=== PATIENT | male | born 1965 | race Caucasian/White ===

== ENCOUNTER → 2018-07-14 16:19 | Outpatient (CLI) | payer SELFPAY ==
[2018-07-14 18:16] LABS: AST(SGOT) 17 U/L (15-37); Alanine Aminotransfer ALT/SGPT 30 U/L (16-61); Albumin, Serum 3.6 g/dL (3.2-5.0); Alkaline Phosphatase 98 U/L (45-117); Anion Gap 10 (5-15); BUN 15 mg/dL (7-18); BUN/Creat Ratio 15.8 RATIO (10-20); Bilirubin, Direct 0.09 mg/dL (0.00-0.30); Calcium,Total 8.4 mg/dL (8.5-10.1); Chloride 104 mmol/L (98-107); Cholesterol 102 mg/dL (200); Creatinine, Serum 0.95 mg/dL (0.70-1.30); EST Glomerular Filtration Rate 88 mL/min (>60); Est Glom Filt Rate - Afr Amer 106 mL/min (>60); Globulin 3.8 g/dL (2.2-4.2); Glucose 278 mg/dL (74-106); High Density Lipoprotein 19 mg/dL; Potassium 3.9 mmol/L (3.5-5.1); Protein, Total 7.4 g/dL (6.4-8.2); Sodium Level 139 mmol/L (136-145); Triglycerides 166 mg/dL; Very Low Density Lipoprotein 33 mg/dL (5-40)
[2018-07-14 18:28] LABS: Microalbumin,Random Urine 32.3 mg/L (NO RANGE EST.); Microalbumin:Creatinine Ratio 15.8 mg/g CRE (<30 mg/g CRE)
--- OUTSIDE RECORDS SUMMARY | 2018-10-16 09:02 | XMS RPT_ITS ---
:1965 Author Organization [facility] Care Team Providers Name Role Phone Mark Maradiaga Attending Unavailable Mark Maradiaga Primary Care Unavailable PROBLEMS PROBLEMS No Problem Records FoundPROCEDURES PROCEDURES No Procedure Records FoundRESULTS RESULTS BASIC METABOLIC Collected: 07/14/2018 Status: F Source: ELIUD PROFILE (BMP) 4:21 PM [facility] REPOSITORY Order Comment: Comments: V TYPE CODE TESTS RESULT OUT OF RANGE REFERENCE UNITS LAB L501.0100 74-106 mg/dL High GLU 278 Result Comment: Glucose result greater than or equal to 200 mg/dL suggests DIABETES MELLITUS per A.D.A. criteria. Please note revised GLUCOSE reference range effective 2017. LAB L501.1000 7-18 mg/dL Normal BUN 15 LAB L501.1100 0.70-1.30 mg/dL Normal CREAT,SERUM 0.95 Result Comment: The validity of the calculated GFR AND GFRAA in patients over 70 years has not been determined. Clinical correlation is essential. LAB L501.1110 >60 mL/min Normal EST GFR 88 Result Comment: Non- GFR Calc LAB L501.1115 >60 mL/min Normal EST GFR - AA 106 Result Comment: GFR Calc LAB L501.1300 10-20 RATIO Normal BUN/CRE 15.8 LAB L501.2200 8.5-10.1 mg/dL Low CA 8.4 LAB L501.5300 136-145 mmol/L NA Normal 139 LAB L501.5600 3.5-5.1 mmol/L K Normal 3.9 Result Comment: Slight Hemolysis, Result may be falsely increased. LAB L501.5900 98-107 mmol/L Normal CL 104 LAB L501.6100 21.0-32.0 mmol/L Normal CO2 25.0 LAB L501.6200 5-15 Normal GAP 10 Performed By: #### L500.2500, L500.3400, L500.4100 #### [facility] [address] [place], [place], [id number] LIVER PROFILE Collected: 07/14/2018 Status: F Source: [place] 4:21 PM [facility] REPOSITORY Order Comment: Comments: V TYPE CODE TESTS RESULT OUT OF RANGE REFERENCE UNITS LAB L501.1500 6.4-8.2 g/dL Normal T PROT 7.4 LAB L501.1800 3.2-5.0 g/dL Normal ALB 3.6 LAB L501.1950 2.2-4.2 g/dL Normal GLOB 3.8 LAB L501.4100 15-37 U/L Normal AST 17 Result Comment: Slight Hemolysis, Result may be falsely increased. LAB L501.4305 45-117 U/L Normal ALK P 98 LAB L501.4405 16-61 U/L Normal ALT 30 LAB L501.4600 0.20-1.00 mg/dL Normal T BILI 0.20 LAB L501.4700 0.00-0.30 mg/dL Normal D BILI 0.09 Performed By: #### L500.2500, L500.3400, L500.4100 #### [facility] [address] [place], [place], [id number] LIPID PROFILE Collected: 07/14/2018 Status: F Source: [place] 4:21 PM [facility] REPOSITORY Order Comment: Comments: V TYPE CODE TESTS RESULT OUT OF RANGE REFERENCE UNITS LAB L501.4900 200 mg/dL Normal CHOL 102 Result Comment: <200 mg/dL Desirable 200-240 mg/dL Borderline >240 mg/dL High Risk LAB L501.5000 mg/dL Normal TRIG 166 Result Comment: The drugs N-Acetylcysteine and Metamizole may falsely depress this assay. Serum Triglycerides Reference Interval Normal <150 mg/dL Borderline high 150 - 199 mg/dL High 200 - 499 mg/dL Very High > or = 500 mg/dL LAB L501.6400 mg/dL Low HDL 19 Result Comment: The drugs N-Acetylcysteine and Metamizole may falsely depress this assay. Reference Range HDL <40 mg/dL Low HDL Cholesterol HDL >or= 60 mg/dL High HDL Cholesterol LAB L501.6500 0-130 mg/dL Normal LDL 50 LAB L501.6600 5-40 mg/dL Normal VLDL 33 Performed By: #### L500.2500, L500.3400, L500.4100 #### [facility] [address] [place], [address] MICROALB:CREAT Collected: 07/14/2018 Status: F Source: [facility] 4:21 PM [facility] REPOSITORY TYPE CODE TESTS RESULT OUT OF RANGE REFERENCE UNITS LAB L501.1200 NO RANGE EST. mg/dL Normal UR CREAT 204.00 LAB L502.0500 NO RANGE EST. mg/L Normal 32.3 MICROALBUMIN ,UR LAB L502.0600 <30 mg/g CRE mg/g CRE Normal 15.8 MALB:CREAT Performed By: #### L502.0250 #### [facility] [address] [facility] [place], [address] PROGRESS Observed: 01/07/2018 Status: COMPLETED Source: [place] 10:07 AM [facility] REPOSITORY HNO ID: [id number] Author: Jens Tripp Service: (none) Author Type: Fringe Knotter Type: Progress Notes Filed: 01/07/2018 10:13 AM Note Text: Spoke with the patient and he has changed physician's to Dr. Maradiaga. Jens Tripp MA PROGRESS Observed: 01/01/2018 Status: COMPLETED Source: [place] 10:59 AM [facility] REPOSITORY HNO ID: [id number] Author: Jens Tripp Service: (none) Author Type: Fringe Knotter Type: Progress Notes Filed: 01/07/2018 10:13 AM Note Text: Saiguot Message sent to the patient. Jens Tripp MA PROGRESS Observed: 01/01/2018 Status: COMPLETED Source: [place] 10:57 AM [facility] REPOSITORY HNO ID: [id number] Author: Jens Tripp Service: (none) Author Type: Fringe Knotter Type: Progress Notes Filed: 01/07/2018 10:13 AM Note Text: I have attempted to contact this patient by phone to return their call, schedule an appointment, discuss lab results, etc. Left message to call back. PROGRESS Observed: 12/18/2017 Status: COMPLETED Source: [place] 1:01 PM [facility] REPOSITORY HNO ID: [id number] Author: Jens Tripp Service: (none) Author Type: Fringe Knotter Type: Progress Notes Filed: 01/07/2018 10:13 AM Note Text: PHMA TEAMLET DOCUMENTATION Provider Action/FYI: Patient needs appointment, needs labs ordered, needs Foot and Eye exam. PSR Action/FYI: Teamlet has identified patient by name and date of . Team Dr. Matthews and Jens Tripp ? Last Office Visit:Visit date not found ? Next Office Visit: Visit date not found ? Last BP/Labs: Blood Pressure: Last 3 Encounter BP Readings: Date: BP: 12/20/2015 128/70 10/13/2015 128/90 05/16/2015 136/84 Lipids: Cholesterol, Total (mg/dL) Date Value 10/12/2015 149 06/18/2013 125 HDL Cholesterol (mg/dL) Date Value 10/12/2015 24 06/18/2013 34 LDL Cholesterol (mg/dL) Date Value 10/12/2015 93 06/18/2013 75 Triglyceride (mg/dL) Date Value 10/12/2015 162 06/18/2013 82 HGB A1C: Lab Results Component Value Date HBA1C 9.0 10/12/2015 HBA1C 6.2 11/17/2013 HBA1C 6.0 06/18/2013 TSH: No results found for: TSH) Care Gap: DM - Need Urine Albumin / NOT checked in last 12 months Needs dilated eye exam - HM overdue Last HGBA1C is NOT under 9% Plan: ? Confirm PCP / Status ? Type of appointment needed: Follow-up ? Consultation Appointments: No patient outreach needed at this time ? Labs, HM and Immunization: Jens Tripp MA PROGRESS Observed: 12/17/2017 Status: COMPLETED Source: [place] 10:58 AM [facility] REPOSITORY HNO ID: [id number] Author: Jens Tripp Service: (none) Author Type: Fringe Knotter Type: Progress Notes Filed: 01/07/2018 10:13 AM Note Text: I have attempted to contact this patient by phone to return their call, schedule an appointment, discuss lab results, etc. Left message to call back. DINORA Observed: 12/17/2017 Status: COMPLETED Source: [place] 12:00 AM [facility] REPOSITORY Patient Outreach (FAMPWS) OZ CHAIDEZ ([id number]) 1965 M Date Time Provider Department 12/17/17 JENS TRIPP) EDUARD During your visit today, we recorded the following information about you: Jens Tripp MA 01/07/2018 10:13 AM Signed I have attempted to contact this patient by phone to return their call, schedule an appointment, discuss lab results, etc. Left message to call back. Jens Tripp MA 01/07/2018 10:13 AM Signed PHMA TEAMLET DOCUMENTATION Provider Action/FYI: Patient needs appointment, needs labs ordered, needs Foot and Eye exam. PSR Action/FYI: Teamlet has identified patient by name and date of . Team Dr. Matthews and Jens Tripp ? Last Office Visit:Visit date not found ? Next Office Visit: Visit date not found ? Last BP/Labs: Blood Pressure: Last 3 Encounter BP Readings: Date: BP: 12/20/2015 128/70 10/13/2015 128/90 05/16/2015 136/84 Lipids: Cholesterol, Total (mg/dL) Date Value 10/12/2015 149 06/18/2013 125 HDL Cholesterol (mg/dL) Date Value 10/12/2015 24 06/18/2013 34 LDL Cholesterol (mg/dL) Date Value 10/12/2015 93 06/18/2013 75 Triglyceride (mg/dL) Date Value 10/12/2015 162 06/18/2013 82 HGB A1C: Lab Results Component Value Date HBA1C 9.0 10/12/2015 HBA1C 6.2 11/17/2013 HBA1C 6.0 06/18/2013 TSH: No results found for: TSH) Care Gap: DM - Need Urine Albumin / NOT checked in last 12 months Needs dilated eye exam - HM overdue Last HGBA1C is NOT under 9% Plan: ? Confirm PCP / Status ? Type of appointment needed: Follow-up ? Consultation Appointments: No patient outreach needed at this time ? Labs, HM and Immunization: JAVAN Myers MA 01/07/2018 10:13 AM Signed I have attempted to contact this patient by phone to return their call, schedule an appointment, discuss lab results, etc. Left message to call back. Jens Tripp MA 01/07/2018 10:13 AM Signed Virtual Paper Message sent to the patient. JAVAN Myers MA 01/07/2018 10:13 AM Signed Spoke with the patient and he has changed physician's to Dr. Maradiaga. Jens Tripp MA Allergies As of Date: 12/17/2017 Noted Allergy Reaction BEES 12/13/2006 Date Reviewed: 12/20/2015 Reviewed by: Anupama Vieira Ma - Fully Assessed Reason for Visit: PHMA/Care Gap Outreach [[id number]] Prescriptions as of 12/17/2017 Sig: OMEPRAZOLE 40 MG CAPSULE,ARTURO* TAKE ONE CAPSULE BY MOUTH ONC* LOSARTAN 100 MG TABLET TAKE ONE TABLET BY MOUTH ONCE* OMEGA-3 ACID ETHYL ESTERS 1 G* TAKE TWO CAPSULES BY MOUTH TW* TAMSULOSIN 0.4 MG CAPSULE TAKE ONE CAPSULE BY MOUTH ONC* FINASTERIDE 5 MG TABLET TAKE ONE TABLET BY MOUTH ONCE* OMEGA-3 FATTY ACIDS 1,000 MG * Take 2 capsules by mouth twic* PHENAZOPYRIDINE 200 MG TABLET TAKE ONE TABLET BY MOUTH THRE* EPINEPHRINE 0.3 MG/0.3 ML INJ* Inject 0.3 mL intramuscularly* LINAGLIPTIN 5 MG TABLET Take 1 tablet by mouth once d* METFORMIN 500 MG TABLET Take 1 tablet by mouth twice * GLIMEPIRIDE 2 MG TABLET Take 1 tablet by mouth daily * MELOXICAM 7.5 MG TABLET Take 1 tablet by mouth once d* NICOTINE 21 MG/24 HR DAILY TR* Apply 1 Patch as directed connie* CYCLOBENZAPRINE 10 MG TABLET Take 1 tablet by mouth daily * BLOOD SUGAR DIAGNOSTIC STRIPS Test blood sugar(s) 3 times d* CLOBETASOL 0.05 % TOPICAL CRE* Apply to affected area of act* TRIAMCINOLONE ACETONIDE 0.1 %* Apply to affected area(s) of * BD ASSURE BPM-AUTO ARM CUFF BP check 2x per week. 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 LUMB DISC DIS W MYELOPAT [M51.06] More... Tobacco use disorder [F17.200] Priority: B More... Obesity, unspecified [E66.9] Priority: B More... Allergy to insects and arachnids [Z91.038] Priority: B More... FRACTURE ACETABULUM-CLOSED [S32.409A] INVALID FOR* More... Esophageal reflux [K21.9] Priority: B More... Essential hypertension, benign [I10] Priority: A More... Diabetes mellitus type 2, uncontrolled, without*INVALID FOR* Priority: A Lichenification and lichen simplex chronicus [L*INVALID FOR* Priority: D Pruritus [L29.9] INVALID FOR* Priority: D Xerosis cutis [L85.3] INVALID FOR* Priority: D Neurodermatitis [L28.0] INVALID FOR* Priority: D Eczematous dermatitis [L30.9] INVALID FOR* Priority: D Excoriation [T14.8XXA] INVALID FOR* Priority: D Dysuria [R30.0] INVALID FOR* BPH (benign prostatic hyperplasia) [N40.0] INVALID FOR* Suprapubic pain [R10.2] INVALID FOR* Hematuria [R31.9] INVALID FOR* Prostatitis [N41.9] INVALID FOR* Frequency of urination [R35.0] INVALID FOR* 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] INVALID FOR* Benign non-nodular prostatic hyperplasia with l*INVALID FOR* Encounter Status:Closed by JENS TRIPP on 01/07/18 ALLERGIES ALLERGIES DATE TYPE / CODE NAME / CODE REACTION SEVERITY SOURCE 06/09/2016 Drug venom-honey Anaphylaxis Unknown [facility] Allergy/4160 [id number] [facility] [address]388(SNOMED 698(RXNORM) Repository CT) ENCOUNTERS ENCOUNTERS ADMIT/DISCHARGE ACCOUNT ADMITTING ENCOUNTER LOCATION SOURCE NUMBER CLASS 07/14/2018 [id number] Ambulatory [facility] 3 [facility] ing:MFPLAB Repository PAYERS PAYERS ENCOUNTER GUARANTOR PAYER SUBSCRIBER SOURCE 07/14/2018 Oz Galeas Primary NOT GIVENUNK [place] [id number] Insurance:SELF PAY [facility] [id number]: Number: [facility] Repository Date:2018-07-14 ()
== END ==
LOC: MFPLAB 16:19
PROVIDERS: Family Provider Family Medicine; PCP Family Medicine; Visit Provider Family Medicine
DX: E11.9 Type 2 diabetes mellitus without complications (principal)
CPT/HCPCS: 36415; 80048; 80061; 80076; 82043; 82570

== ENCOUNTER → 2019-06-05 08:35 | Outpatient (CLI) | payer SELFPAY ==
[2019-06-05 11:00] LABS: Anion Gap 7 (5-15); BUN 19 mg/dL (7-18); BUN/Creat Ratio 21.9 RATIO (10-20); Calcium,Total 9.2 mg/dL (8.5-10.1); Chloride 106 mmol/L (98-107); Cholesterol 147 mg/dL (200); Creatinine, Serum 0.87 mg/dL (0.70-1.30); EST Glomerular Filtration Rate 97 mL/min (>60); Est Glom Filt Rate - Afr Amer 117 mL/min (>60); Glucose 144 mg/dL (74-106); High Density Lipoprotein 28 mg/dL; Potassium 4.2 mmol/L (3.5-5.1); Rheumatoid Factor < 10.0 IU/mL (<15); Sodium Level 139 mmol/L (136-145); Triglycerides 75 mg/dL; Very Low Density Lipoprotein 15 mg/dL (5-40)
[2019-06-08 16:57] LABS: ANTINUCLEAR ANTIBODIES DIRECT Negative (Negative)
== END ==
LOC: MFPLAB 08:36
PROVIDERS: Family Provider Family Medicine; PCP Family Medicine; Referring Provider Family Medicine; Visit Provider Family Medicine
DX: E11.9 Type 2 diabetes mellitus without complications (principal); M19.90 Unspecified osteoarthritis, unspecified site
CPT/HCPCS: 36415; 80048; 80061; 86038; 86431

== ENCOUNTER → 2022-03-02 | Outpatient (CLI) | payer SELFPAY ==
[2022-03-02 17:52] LABS: Anion Gap 6 (5-15); BUN 22 mg/dL (7-18); BUN/Creat Ratio 21.2 RATIO (10-20); Calcium,Total 8.7 mg/dL (8.5-10.1); Chloride 104 mmol/L (98-107); Cholesterol 164 mg/dL (200); Creatinine, Serum 1.04 mg/dL (0.70-1.30); EST Glomerular Filtration Rate 78 mL/min (>60); Est Glom Filt Rate - Afr Amer 94 mL/min (>60); Glucose 283 mg/dL (74-106); High Density Lipoprotein 28 mg/dL; Potassium 4.2 mmol/L (3.5-5.1); Sodium Level 134 mmol/L (136-145); Triglycerides 235 mg/dL; Very Low Density Lipoprotein 47 mg/dL (5-40)
== END | disposition home or self-care (01) ==
PROVIDERS: PCP Family Medicine; Referring Provider Family Medicine; Visit Provider Family Medicine
DX: I10 Essential (primary) hypertension (principal)
CPT/HCPCS: 36415; 80048; 80061

== ENCOUNTER 2022-12-02 11:30 | Emergency (ER) | payer SELFPAY ==
[2022-12-02 11:31] VITALS: BP 177/101; PULSE 54; RESP 20; TEMP 35.5; O2SAT 99; BMI 27.7
--- NOTE | 2022-12-02 11:51 | CT_ITS ---
EXAM: CT ABDOMEN AND PELVIS WITH INTRAVENOUS CONTRAST CLINICAL INDICATION: abdominal pain RUQ TECHNIQUE: Helically acquired images were obtained of the abdomen and pelvis with intravenous contrast. This CT exam was performed using one or more of the following dose reduction techniques: automated exposure control, adjustment of the mA and/or kV according to patient size, and/or use of iterative reconstruction technique. CONTRAST: IV 100mL Isovue-370 COMPARISON: No relevant prior studies available. FINDINGS: LOWER THORAX: Normal. Lung bases are clear. No cardiomegaly. No pericardial effusion. ABDOMEN: LIVER: Normal. Homogeneous. No focal mass. GALLBLADDER AND BILE DUCTS: Multiple small calcified gallstones. PANCREAS: Normal. No focal cystic or solid mass. SPLEEN: Normal. Normal size without focal cystic or solid mass. ADRENALS: 14 mm left adrenal nodule. KIDNEYS AND URETERS: Normal. Normal renal size and position. No hydronephrosis. STOMACH AND BOWEL: Diverticulosis of the colon noted without evidence of acute diverticulitis. PELVIS: APPENDIX: Appendix is visualized and normal in appearance. BLADDER: Normal. REPRODUCTIVE: Unremarkable as visualized. No mass. ABDOMEN and PELVIS: INTRAPERITONEAL SPACE: Normal. No ascites or other fluid collection. No free air. BONES/JOINTS: Prominent posterior osteophytosis at L3-4 and L4-5 results in an element of spinal stenosis. Prominent disc degeneration at L5-S1. SOFT TISSUES: Normal. No discrete abdominal or pelvic wall hernia. VASCULATURE: Normal. Abdominal aorta is non-dilated. LYMPH NODES: Normal. No enlarged lymph nodes. CT/Abdomen/Pelvis W IV Cont ONLY IMPRESSION: 1. Cholelithiasis. 2. Diverticulosis coli. 3. 14 mm left adrenal nodule consistent with an adenoma. Recommend correlation with hormone levels. Electronically Signed: Curtis York MD at 13:44 EDT ,
--- NOTE | 2022-12-02 11:51 | EKG12_ITS ---
Test Reason : Blood Pressure : / mmHG Vent. Rate : 056 BPM Atrial Rate : 056 BPM P-R Int : 176 ms QRS Dur : 080 ms QT Int : 430 ms P-R-T Axes : 051 079 069 degrees QTc Int : 414 ms Sinus bradycardia Otherwise normal ECG Confirmed by LENA AYALA, HENRI ([id number]), medical transcription editor JOHN COLLINS ([id number]) on 12/04/2022 8:11:23 AM Referred By: MARLY Confirmed By:HENRI APREDES MD
--- NOTE | 2022-12-02 11:53 | RAD_ITS ---
EXAM: XR CHEST, 1 VIEW CLINICAL INDICATION: chest pain TECHNIQUE: Frontal view of the chest. COMPARISON: No relevant prior studies available. FINDINGS: LUNGS AND PLEURAL SPACES: Normal. No consolidation or edema. No pneumothorax. No effusion. HEART: Normal heart size. MEDIASTINUM: No mediastinal or hilar mass. BONES/JOINTS: No acute abnormality. RAD/Chest 1 View (Portable) IMPRESSION: No acute cardiopulmonary disease. Electronically Signed: Curtis York MD at 12:55 EDT ,
[2022-12-02 12:06] LABS: Absolute Lymphocyte Count 3.07 X10^3/uL (0.83-4.51); Absolute Neutrophil Count 10.1 X10^3/uL (2.0-7.7); Basophil# 0.08 X10^3/uL; Basophil% 0.6 % (0-1); Eosinophil# 0.12 X10^3/uL; Eosinophils% 0.8 % (0-5); Hematocrit 43.9 % (40-54); Hemoglobin 15.2 g/dL (13.0-16.5); Lymphocyte # 3.07 X10^3/ul (0.83-4.51); Lymphocyte % 21.6 % (19-41); Mean Corp Hgb Conc 34.6 g/dL (32-36); Mean Corpuscular Hgb 30.8 pg (27.0-32.0); Mean Corpuscular Volume 88.9 fL (80-94); Mean Platelet Vol. 9.4 fl (6.2-12.0); Monocyte% 5.6 % (0-10); NRBC Flagged by Analyzer 0 % (0-5); Neutrophil % 71.1 % (47-70); Platelet Count 332 K/mm3 (150-450); RBC Distribution Width CV 13.1 % (11.6-14.6); RBC Distribution Width SD 42.7 fl (35.1-43.9); Red Blood Count 4.94 M/mm3 (4.6-6.2); White Blood Count 14.2 K/mm3 (4.4-11.0)
--- NOTE | 2022-12-02 12:10 | EDS_ITS ---
HPI <KAYCE Jimenez - Last Filed: 12/02/22 14:33> History of Present Illness Chief Complaint: Chest Pain Narrative Narrative: Patient is a 57-year-old male with history of type 2 diabetes, hypertension, lipidemia who presents to the emergency department with complaints of right upper quadrant abdominal pain, that radiates to the back as well as into his epigastric and chest. Patient states this started at 3 AM when it woke him up. Patient states he feels nauseous however no doubt vomiting. He states whenever he breathes it hurts in his abdomen. He denies any fever or chills. Patient denies any history of pancreatitis, abdominal surgeries. He denies any history of [place]. He does use cigarettes. PFSH <KAYCE Jimenez - Last Filed: 12/02/22 14:33> PFSH Home Medications finasteride 5 mg tablet 5 mg PO DAILY 05/06/15 [History Last Taken Unknown] losartan 50 mg tablet 50 mg PO DAILY 05/06/15 [History Last Taken Unknown] omeprazole 40 mg capsule,delayed release (Prilosec) 40 mg PO DAILY 05/06/15 [History Last Taken Unknown] glimepiride 4 mg tablet 4 mg PO DAILY 12/02/22 [History Last Taken Unknown] insulin NPH isoph U-100 human 100 unit/mL (3 mL) subcutaneous pen (Novolin N FlexPen) 80 unit subcut QHS 12/02/22 [History Last Taken Unknown] ondansetron 4 mg disintegrating tablet 4 mg PO Q8H PRN PRN Nausea #10 tabs 12/02/22 [Rx Last Taken Unknown] oxycodone-acetaminophen 5 mg-325 mg tablet (Percocet) 1 tab PO Q8H PRN pain 3 days #8 tabs 12/02/22 [Rx Last Taken Unknown] Allergy/AdvReac Type Severity Reaction Status Date / Time venom-honey bee Allergy Anaphylaxis Verified 12/02/22 11:33 [bee venom (honey bee)] Social History Smoking Status: Heavy Smoker (>10/day) ROS <KAYCE Jimenez - Last Filed: 12/02/22 14:33> ROS ED ROS Narrative Constitutional: Negative for fever, chills, weight loss, weakness Eyes: Negative for vision loss, vision change, double vision ENT: Negative for any sore throat, ear pain, congestion Cardiovascular: Negative for any tightness, palpitations. Positive epigastric chest pain Respiratory: Negative for any cough, sputum production, hemoptysis, dyspnea, dyspnea on exertion, orthopnea Gastrointestinal: Negative for any vomiting, diarrhea, constipation, blood in stool, blood in vomit. Positive for upper abdominal pain, epigastric pain, nausea : Negative for any urinary frequency, dysuria, retention, blood in urine Muscle skeletal: Negative for any muscle joint pain, stiffness, myalgias, arthralgias, neck pain, back pain Neurological: Negative for any headache, syncope, numbness or tingling, dizziness Skin: Negative for any rashes, lumps, itching, abrasions, lacerations Psychiatric: Negative for any depression, anxiety, stress, suicidal ideation, h omicidal ideation Hematologic: Negative for any easy bruising, excessive bruising, easy bleeding Allergies: Negative for any eczema, hives, rash EXAM <KAYCE Jimenez - Last Filed: 12/02/22 14:33> Physical Exam Narrative Exam Narrative: Vital signs reviewed. Patient does appear to be in mild discomfort to the right upper quadrant, radiates to his back, epigastric area HEET: Head normocephalic atraumatic, TMs clear bilaterally. Posterior pharynx is clear, moist mucous membranes. Nares clear bilaterally. Neck: Supple with no lymphadenopathy or tenderness. No signs of meningismus, negative jolt sign. Cardiac: Regular rate and rhythm no murmurs gallops or rubs, equal peripheral pulses bilaterally. Respiratory: Lungs clear to auscultation bilaterally. No chest tenderness. Abdomen: Soft, nondistended. No abdominal bruit or pulsatile masses. No hepatosplenomegaly. Positive for tenderness to the right upper quadrant epigastric area Extremities: No peripheral edema, no signs of gross trauma or deformity. Active full range of motion of all extremities. Neuro: Cranial nerves II through XII intact, no focal neurological deficits. Skin: Clean dry and intact with no rash, purpura, petechiae, vesicles or pustules. Backs/flank: No CVA tenderness, no midline spinal tenderness, no deformity. Psych: Normal mood and affect. No SI, HI or acute psychosis. Const Vital Signs: 12/02/22 11:31 12/02/22 12:18 12/02/22 12:19 Temperature 96 F L Temperature Source Temporal Pulse Rate 54 L 68 Respiratory Rate 20 H 24 H Respiratory Effort Normal Non-Labored Blood Pressure 177/101 H 158/73 H Blood Pressure Mean 126 101 Pulse Ox 99 94 Oxygen Delivery Method Room Air Room Air 12/02/22 13:23 12/02/22 14:00 12/02/22 14:45 Temperature Temperature Source Pulse Rate 74 72 72 Respiratory Rate 23 H 18 16 Respiratory Effort Blood Pressure 148/89 H 136/77 H 139/88 H Blood Pressure Mean 108 96 Pulse Ox 93 94 97 Oxygen Delivery Method Room Air Room Air Positive well nourished and well developed General Appearance ED: well developed <Dr. Casimiro Laurent DO - Last Filed: 12/02/22 19:48> Physical Exam Const Vital Signs: 12/02/22 11:31 12/02/22 12:18 12/02/22 12:19 Temperature 96 F L Temperature Source Temporal Pulse Rate 54 L 68 Respiratory Rate 20 H 24 H Respiratory Effort Normal Non-Labored Blood Pressure 177/101 H 158/73 H Blood Pressure Mean 126 101 Pulse Ox 99 94 Oxygen Delivery Method Room Air Room Air 12/02/22 13:23 12/02/22 14:00 12/02/22 14:45 Temperature Temperature Source Pulse Rate 74 72 72 Respiratory Rate 23 H 18 16 Respiratory Effort Blood Pressure 148/89 H 136/77 H 139/88 H Blood Pressure Mean 108 96 Pulse Ox 93 94 97 Oxygen Delivery Method Room Air Room Air MDM <KAYCE Jimenez - Last Filed: 12/02/22 14:33> [facility] Lab Data Labs: Laboratory Results - last 24 hr 12/02/22 12/02/22 12/02/22 11:50 11:50 14:00 WBC 14.2 H RBC 4.94 Hgb 15.2 Hct 43.9 MCV 88.9 MCH 30.8 MCHC 34.6 RDW Std Deviation 42.7 RDW Coeff of Esther 13.1 Plt Count 332 MPV 9.4 Immature Gran % (Auto) 0.300 Neut % (Auto) 71.1 H Lymph % (Auto) 21.6 [place] % (Auto) 5.6 Eos % (Auto) 0.8 Baso % (Auto) 0.6 Absolute Neuts (auto) 10.1 H Absolute Lymphs (auto) 3.07 Nucleated RBC % 0 Sodium 134 L Potassium 4.2 Chloride 104 Carbon Dioxide 21.0 Anion Gap 9 BUN 20 H Creatinine 0.89 Estim Creat Clear Calc 101.00 Est GFR (MDRD) Af Amer 113 Est GFR (MDRD) Non-Af 93 BUN/Creatinine Ratio 22.5 H Glucose 318 H Calcium 9.4 Total Bilirubin 0.60 AST 11 L ALT 20 Alkaline Phosphatase 95 Troponin I High Sens 4 4 Total Protein 7.6 Albumin 3.8 Globulin 3.8 Albumin/Globulin Ratio 1.0 Lipase 23 Urine Color Urine Clarity Urine pH Ur Specific [place] Urine Protein Urine Glucose (UA) Urine Ketones Urine Occult Blood Urine Nitrite Urine Bilirubin Urine Urobilinogen Ur Leukocyte Esterase Urine RBC Urine WBC Ur Squamous Epith Cells Urine Bacteria Urine Mucus 12/02/22 14:00 WBC RBC Hgb Hct MCV MCH MCHC RDW Std Deviation RDW Coeff of Esther Plt Count MPV Immature Gran % (Auto) Neut % (Auto) Lymph % (Auto) [place] % (Auto) Eos % (Auto) Baso % (Auto) Absolute Neuts (auto) Absolute Lymphs (auto) Nucleated RBC % Sodium Potassium Chloride Carbon Dioxide Anion Gap BUN Creatinine Estim Creat Clear Calc Est GFR (MDRD) Af Amer Est GFR (MDRD) Non-Af BUN/Creatinine Ratio Glucose Calcium Total Bilirubin AST ALT Alkaline Phosphatase Troponin I High Sens Total Protein Albumin Globulin Albumin/Globulin Ratio Lipase Urine Color Yellow Urine Clarity Clear Urine pH 6.5 Ur Specific [place] 1.010 Urine Protein 15 H Urine Glucose (UA) 1000 H Urine Ketones 50 H Urine Occult Blood Negative Urine Nitrite Negative Urine Bilirubin Negative Urine Urobilinogen Normal Ur Leukocyte Esterase Negative Urine RBC 0 SEEN Urine WBC 0 SEEN Ur Squamous Epith Cells 0 SEEN Urine Bacteria 0 SEEN Urine Mucus 0 SEEN Radiography Diagnostic Testing: Clinical Impression(s) from Imaging Studies Abdomen/Pelvis CT 12/02/22 11:51 IMPRESSION: 1. Cholelithiasis. 2. Diverticulosis coli. 3. 14 mm left adrenal nodule consistent with an adenoma. Recommend correlation with hormone levels. Electronically Signed: Curtis York MD at 13:44 EDT Reading Location ID and State: [facility] / [place] Tel , Service support , Chest X-Ray 12/02/22 11:53 IMPRESSION: No acute cardiopulmonary disease. Electronically Signed: Curtis Yokr MD at 12:55 EDT , EKG Sinus bradycardia : Attestation: I personally reviewed and interpreted this EKG as follows: Interpretation: Sinus Bradycardia Comments: Sinus bradycardia, rate of 56 bpm, MN interval 176 ms, QRS duration 80 ms, no acute ST elevation, no acute infarct noted. Treatment and Re-Evaluation :: Patient initial evaluation appears uncomfortable, patient has pain to his epigastric area, upper abdomen. Patient presents emergency department with pain to his epigastric, chest, upper abdominal pain that woke him up at 3 AM. Secondary to the patient's age, comorbidities, patient will be receiving a cardiac work-up. Patient also received a abdominal work-up concerning for any acute cholecystitis, acute pancreatitis, choledocholithiasis. Patient received IV morphine, IV Zofran, on reassessment, patient felt much better. Patient states his pain is 1-2. Patient's laboratory studies showed a leukocytosis with a white blood count of 14.2, patient's chemistry showed a BUN of 22.5, glucose was 318, lipase liver panel was unremarkable. Patient's troponin was negative. Repeat will be drawn. At this time there is no evidence suspect any ACS, [place]. He did receive a chest x-ray which was unremarkable. Negative for any pneumonia. Patient CT of the abdomen pelvis with IV contrast shows cholelithiasis, diverticulosis coli, 14 mm left adrenal nodule consistent with an adenoma, recommend correlation with hormone levels. He was made aware of this finding. Patient could have passed a gallstone which is why he had pain, he is in minimal pain at this time, no evidence of acute cholecystitis. Patient's urinalysis was negative for infection however there were some ketones, greater than 1000 glucose. Patient was given IV fluids. At this time, patient be diagnosed with abdominal pain, biliary colic, hyperglycemia, dehydration. Patient replaced on Percocet for the severe pain, as well as Zofran for pain. Patient is agreeable. He will need to follow-up with surgery to have further work-up. He was educated regarding low-fat diet. He is also instructed to increase his fluid intake, and to watch his sugars more closely. He is agreeable with the plan, he is stable for discharge. <Dr. Casimiro Laurent, DO - Last Filed: 12/02/22 19:48> [facility] Lab Data Labs: Laboratory Results - last 24 hr 12/02/22 12/02/22 12/02/22 11:50 11:50 14:00 WBC 14.2 H RBC 4.94 Hgb 15.2 Hct 43.9 MCV 88.9 MCH 30.8 MCHC 34.6 RDW Std Deviation 42.7 RDW Coeff of Esther 13.1 Plt Count 332 MPV 9.4 Immature Gran % (Auto) 0.300 Neut % (Auto) 71.1 H Lymph % (Auto) 21.6 [place] % (Auto) 5.6 Eos % (Auto) 0.8 Baso % (Auto) 0.6 Absolute Neuts (auto) 10.1 H Absolute Lymphs (auto) 3.07 Nucleated RBC % 0 Sodium 134 L Potassium 4.2 Chloride 104 Carbon Dioxide 21.0 Anion Gap 9 BUN 20 H Creatinine 0.89 Estim Creat Clear Calc 101.00 Est GFR (MDRD) Af Amer 113 Est GFR (MDRD) Non-Af 93 BUN/Creatinine Ratio 22.5 H Glucose 318 H Calcium 9.4 Total Bilirubin 0.60 AST 11 L ALT 20 Alkaline Phosphatase 95 Troponin I High Sens 4 4 Total Protein 7.6 Albumin 3.8 Globulin 3.8 Albumin/Globulin Ratio 1.0 Lipase 23 Urine Color Urine Clarity Urine pH Ur Specific [place] Urine Protein Urine Glucose (UA) Urine Ketones Urine Occult Blood Urine Nitrite Urine Bilirubin Urine Urobilinogen Ur Leukocyte Esterase Urine RBC Urine WBC Ur Squamous Epith Cells Urine Bacteria Urine Mucus 12/02/22 14:00 WBC RBC Hgb Hct MCV MCH MCHC RDW Std Deviation RDW Coeff of Esther Plt Count MPV Immature Gran % (Auto) Neut % (Auto) Lymph % (Auto) [place] % (Auto) Eos % (Auto) Baso % (Auto) Absolute Neuts (auto) Absolute Lymphs (auto) Nucleated RBC % Sodium Potassium Chloride Carbon Dioxide Anion Gap BUN Creatinine Estim Creat Clear Calc Est GFR (MDRD) Af Amer Est GFR (MDRD) Non-Af BUN/Creatinine Ratio Glucose Calcium Total Bilirubin AST ALT Alkaline Phosphatase Troponin I High Sens Total Protein Albumin Globulin Albumin/Globulin Ratio Lipase Urine Color Yellow Urine Clarity Clear Urine pH 6.5 Ur Specific [place] 1.010 Urine Protein 15 H Urine Glucose (UA) 1000 H Urine Ketones 50 H Urine Occult Blood Negative Urine Nitrite Negative Urine Bilirubin Negative Urine Urobilinogen Normal Ur Leukocyte Esterase Negative Urine RBC 0 SEEN Urine WBC 0 SEEN Ur Squamous Epith Cells 0 SEEN Urine Bacteria 0 SEEN Urine Mucus 0 SEEN Radiography Diagnostic Testing: Clinical Impression(s) from Imaging Studies Abdomen/Pelvis CT 12/02/22 11:51 IMPRESSION: 1. Cholelithiasis. 2. Diverticulosis coli. 3. 14 mm left adrenal nodule consistent with an adenoma. Recommend correlation with hormone levels. Electronically Signed: Curtis York MD at 13:44 EDT , Chest X-Ray 12/02/22 11:53 IMPRESSION: No acute cardiopulmonary disease. Electronically Signed: Curtis York MD at 12:55 EDT , Treatment and Re-Evaluation Vital Sign Attestation:: I, Dr Laurent, have reviewed the above progress note and course of action in the ER; agree with the above. I have personally seen and evaluated this patient, gone over history and physical, and discussed disposition and treatment plan with the patient. Discharge Plan Triage Chief Complaint: Chest Pain ED Midlevel Provider: Mark Alcala ED Provider: Casimiro Laurent Dx/Rx/DC Orders Clinical Impression: Biliary colic, Cholelithiasis, Hyperglycemia, Acute dehydration Instructions: ED Diabetic Hyperglycemia, ED Gallstones with Biliary Colic Prescriptions: New oxycodone-acetaminophen [Percocet] 5-325 mg tablet 1 tab PO Q8H PRN (Reason: pain) 3 Days Qty: 8 0RF ondansetron 4 mg tablet,disintegrating 4 mg PO Q8H PRN PRN (Reason: Nausea) Qty: 10 0RF No Action losartan 50 MG tablet 50 mg PO DAILY omeprazole [Prilosec] 40 MG capsule,delayed release(DR/EC) 40 mg PO DAILY finasteride 5 MG tablet 5 mg PO DAILY glimepiride 4 mg tablet 4 mg PO DAILY Label Comments: TAKE 1 TABLET BY MOUTH ONCE DAILY Novolin N FlexPen 100 unit/mL (3 mL) Insulin Pen 80 unit SUBCUT HS Primary Care Provider: Mark Maradiaga Referrals: Devonte Flynn MD [Med Staff - Active Staff] - Mark Maradiaga MD [Primary Care Provider] - Activity Restrictions/Additional Instructions: You need to increase your fluid intake, your blood sugar was greater than 300 today, you have ketones in your urine. You need to follow-up with surgery to have further work-up with your gallstones. Use the pain medicine for severe pain. You may use nausea medicine. For worsening fever, chills, nausea fine please return. Disposition Disposition: Home, Self Care Discharge Date/Time: 12/02/22 14:45
[2022-12-02] MEDS: Mag Hydrox/Al Hydrox/Simeth 30 ML UDC PO (12:15)
[2022-12-02] MEDS: Ondansetron 4 MG/2 ML Vial IV (12:15)
[2022-12-02] MEDS: Morphine 4 MG/ML Syringe IV (12:15)
[2022-12-02 12:18] VITALS: BP 158/73; PULSE 68; RESP 24; O2SAT 94
[2022-12-02 12:24] LABS: AST(SGOT) 11 U/L (15-37); Alanine Aminotransfer ALT/SGPT 20 U/L (16-61); Albumin, Serum 3.8 g/dL (3.2-5.0); Alkaline Phosphatase 95 U/L (45-117); Anion Gap 9 (5-15); BUN 20 mg/dL (7-18); BUN/Creat Ratio 22.5 RATIO (10-20); Calcium,Total 9.4 mg/dL (8.5-10.1); Chloride 104 mmol/L (98-107); Creatinine, Serum 0.89 mg/dL (0.70-1.30); EST Glomerular Filtration Rate 93 mL/min (>60); Est Glom Filt Rate - Afr Amer 113 mL/min (>60); Globulin 3.8 g/dL (2.2-4.2); Glucose 318 mg/dL (74-106); Lipase 23 U/L (13-75); Potassium 4.2 mmol/L (3.5-5.1); Protein, Total 7.6 g/dL (6.4-8.2); Sodium Level 134 mmol/L (136-145); Troponin-I HS (w/2H Reflex) 4 pg/mL (3.0-78.0)
[2022-12-02 13:23] VITALS: BP 148/89; PULSE 74; RESP 23; O2SAT 93
[2022-12-02 14:00] VITALS: BP 136/77; PULSE 72; RESP 18; O2SAT 94
[2022-12-02 14:01] LABS: Reflex Troponin-HS? (from REC) Y
[2022-12-02 14:10] LABS: Bacteria 0 SEEN /hpf (None Seen); Color, Urine Yellow (Yellow); Glucose, Dipstick 1000 mg/dl (Normal); Ketone-Dipstick 50 mg/dl (Negative); Leukocyte Esterase-Dipstick Negative /ul (Negative); Mucous, Urine 0 SEEN /hpf (<or=2+); Nitrite-Dipstick Negative (Negative); Occult Blood-Urine Negative /ul (Negative); Protein-Dipstick 15 mg/dl (Negative); Red Blood Cells-Urine 0 SEEN /hpf (0-5); Squamous Epithelial Cells - UA 0 SEEN /hpf (0-5); Urine Bilirubin Dipstick Negative (Negative); Urine Clarity Clear (Clear); Urine Urobilinogen Normal (Normal); Urine pH 6.5 (5.0 - 8.0); White Blood Cells 0 SEEN /hpf (0-5)
[2022-12-02 14:29] LABS: Troponin-I HS 4 pg/mL (3.0-78.0)
[2022-12-02 14:45] VITALS: BP 139/88; PULSE 72; RESP 16; O2SAT 97
== END 2022-12-02 14:45 | disposition home or self-care (01) ==
PROVIDERS: Nurse Practitioner; Emergency Provider Emergency Medicine; PCP Family Medicine; Visit Provider Emergency Medicine
DX: K80.70 Calculus of gallbladder and bile duct without cholecystitis without obstruction (principal); E11.65 Type 2 diabetes mellitus with hyperglycemia; Z79.4 Long term (current) use of insulin; E86.0 Dehydration; I10 Essential (primary) hypertension; F17.210 Nicotine dependence, cigarettes, uncomplicated; Z79.899 Other long term (current) drug therapy; Z79.84 Long term (current) use of oral hypoglycemic drugs
CPT/HCPCS: 71045; 74177; 80053; 81001; 83690; 84484; 85025; 93005; 96374; 96375; 99284; Q9967; A4216; J2405

== ENCOUNTER → 2023-05-03 | Outpatient (CLI) | payer SELFPAY ==
[2023-05-03 12:52] LABS: Anion Gap 5 (5-15); BUN 20 mg/dL (7-18); BUN/Creat Ratio 25.1 RATIO (10-20); Chloride 106 mmol/L (98-107); Cholesterol 162 mg/dL (200); EST Glomerular Filtration Rate 106 mL/min (>60); Est Glom Filt Rate - Afr Amer 128 mL/min (>60); Glucose 261 mg/dL (74-106); High Density Lipoprotein 33 mg/dL; Potassium 4.1 mmol/L (3.5-5.1); Sodium Level 136 mmol/L (136-145); Triglycerides 135 mg/dL; Very Low Density Lipoprotein 27 mg/dL (5-40)
== END | disposition home or self-care (01) ==
PROVIDERS: PCP Family Medicine; Visit Provider Family Medicine
DX: E11.9 Type 2 diabetes mellitus without complications (principal)
CPT/HCPCS: 36415; 80048; 80061

== ENCOUNTER → 2024-02-07 | Outpatient (CLI) | payer SELFPAY ==
[2024-02-07 10:56] LABS: Anion Gap 4 (5-15); BUN 28 mg/dL (7-18); BUN/Creat Ratio 31.7 RATIO (10-20); Calcium,Total 9.2 mg/dL (8.5-10.1); Chloride 104 mmol/L (98-107); Cholesterol 166 mg/dL (200); Creatinine, Serum 0.88 mg/dL (0.70-1.30); EST Glomerular Filtration Rate 93 mL/min (>60); Est Glom Filt Rate - Afr Amer 113 mL/min (>60); Glucose 264 mg/dL (74-106); High Density Lipoprotein 31 mg/dL; Potassium 4.1 mmol/L (3.5-5.1); Sodium Level 134 mmol/L (136-145); Triglycerides 107 mg/dL; Very Low Density Lipoprotein 21 mg/dL (5-40)
== END | disposition home or self-care (01) ==
PROVIDERS: PCP Family Medicine; Referring Provider Family Medicine; Visit Provider Family Medicine
DX: E11.9 Type 2 diabetes mellitus without complications (principal)
CPT/HCPCS: 36415; 80048; 80061

== ENCOUNTER → 2024-05-15 | Outpatient (CLI) | payer SELFPAY ==
[2024-05-15 11:39] LABS: Anion Gap 5 (5-15); BUN 29 mg/dL (7-18); BUN/Creat Ratio 31.6 RATIO (10-20); Calcium,Total 9.4 mg/dL (8.5-10.1); Chloride 114 mmol/L (98-107); Cholesterol 137 mg/dL (200); Creatinine, Serum 0.92 mg/dL (0.70-1.30); EST Glomerular Filtration Rate 89 mL/min (>60); Est Glom Filt Rate - Afr Amer 108 mL/min (>60); Glucose 178 mg/dL (74-106); High Density Lipoprotein 30 mg/dL; Sodium Level 137 mmol/L (136-145); Triglycerides 75 mg/dL; Very Low Density Lipoprotein 15 mg/dL (5-40)
== END | disposition home or self-care (01) ==
PROVIDERS: PCP Family Medicine; Visit Provider Family Medicine
DX: E11.9 Type 2 diabetes mellitus without complications (principal)
CPT/HCPCS: 36415; 80048; 80061

== ENCOUNTER → 2024-11-13 | Outpatient (CLI) | payer SELFPAY ==
[2024-11-13 10:24] LABS: Anion Gap 10 (5-15); BUN 21 mg/dL (4-19); BUN/Creat Ratio 25.9 RATIO (10-20); Calcium,Total 9.1 mg/dL (7.6-11.0); Chloride 103 mmol/L (98-108); Cholesterol 153 mg/dL (<=200); Creatinine, Serum 0.79 mg/dL (0.70-1.20); EST Glomerular Filtration Rate 101 (>60); Glucose 205 mg/dL (70-99); High Density Lipoprotein 32 mg/dL; Low Density Lipoprotein Calc. 107 mg/dL; Potassium 4.1 mmol/L (3.3-5.1); Sodium Level 136 mmol/L (133-145); Triglycerides 70 mg/dL; Very Low Density Lipoprotein 14 mg/dL (5-40); cholesterol:hdl ratio screen 4.83
== END | disposition home or self-care (01) ==
PROVIDERS: PCP Family Medicine; Referring Provider Family Medicine; Visit Provider Family Medicine
DX: E11.9 Type 2 diabetes mellitus without complications (principal)
CPT/HCPCS: 36415; 80048; 80061